=== PATIENT | male | born 1940 | race Caucasian/White ===

== ENCOUNTER 2018-03-07 03:21 | Inpatient (IN) | payer OTHER ==
[~2018-03-07] VITALS: Ht 152.4 cm; Wt 111.6 kg
[~2018-03-07 03:21] MED LIST: ALTACE10 M1 PO; NEXIUM; PROTONIX40 M1 PO; SYMBICORT160 MCG/4. INH; VENTOLIN HFA INH8 GM IH; ZOCOR20 MG PO
[2018-03-07] MEDS ORDERED: PROAIR HFA8.5 GM INH (03:28)
[2018-03-07] MEDS ORDERED: [UNRECOGNIZED DRUG - REMARK] PO (03:29)
[2018-03-07 03:30] VITALS: BP 147/120; BP 147/60
[2018-03-07 03:56] LABS: ABSOLUTE EOSINOPHILS 0.3 thou/uL (0.0-0.7); ABSOLUTE LYMPHOCYTES 1.3 thou/uL (0.8-5.3); ABSOLUTE MONOCYTES 0.6 thou/uL (0.0-1.2); ABSOLUTE NEUTROPHILS 3.6 thou/uL (1.6-8.1); BASOPHILS 0.4 %; EOSINOPHILS 5.1 %; HEMATOCRIT 41.1 % (42.0-52.0); HEMOGLOBIN 13.8 gm/dL (14.0-18.0); LYMPHOCYTES 21.8 %; MCHC 33.6 g/dL (28.0-37.0); MCV 89.3 fL (80.0-100.0); MONOCYTES 10.9 %; MPV 8.4 fl. (7.2-11.1); NUCLEATED RBCS 0 /100WBC; PLATELET COUNT* 168 thou/uL (150-400); POLYS 61.8 %; RDW-CV 13.6 % (10.5-14.5); WBC 5.8 thou/uL (4.0-11.0)
[2018-03-07 04:03] LABS: ANION GAP 9 mmol/L (7-16); BUN 14 mg/dL (7-18); CALCIUM 8.4 mg/dL (8.5-10.1); CHLORIDE 108 mmol/L (98-107); CO2 26 mmol/L (21-32); CREATININE 1.1 mg/dL (0.6-1.3); GLUCOSE 118 mg/dL (70-99); POTASSIUM 3.9 mmol/L (3.5-5.1); SODIUM 143 mmol/L (136-145)
[2018-03-07 04:14] LABS: ALBUMIN 3.6 g/dL (3.4-5.0); ALKALINE PHOSPHATASE 57 U/L (46-116); NT-PRO BRAIN NAT PEPTIDE 595 pg/mL (<300); SGOT 27 U/L (15-37); SGPT 34 U/L (30-65); TOTAL BILIRUBIN 0.4 mg/dL (<0.1-1.0); TOTAL PROTEIN 6.7 g/dL (6.4-8.2); TROPONIN-I LEVEL <0.06 ng/mL (<0.06)
--- NOTE | 2018-03-07 07:17 | NUR ---
I assumed care of the patient at 0700. He is alert and oriented x4 and is resting comfortably. RT is seeing the patient. He will be transfered to room 200 as soon as a nurse is able to take report. Will continue to monitor.
[2018-03-07 08:00] VITALS: BP 146/62
[2018-03-07 08:04] VITALS: BP 117/58
--- NOTE | 2018-03-07 10:14 | EKG ---
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: BRADY Quintana : 1940 Requested By: Kaiden Willson Order Number: [id number] MD: Jamel Maza Measurements Intervals [place] Rate: 56 P: 8 DC: 152 QRS: 24 QRSD: 101 T: 67 QT: 409 QTc: 395 Interpretive Statements Sinus rhythm Atrial premature complex Borderline low voltage, extremity leads Compared to ECG 05/27/2017 06:58:11 Atrial premature complex(es) now present Electronically Signed On 03-07-2018 10:14:07 CDT by Jamel Maza [email or web address] <ELECTRONICALLY SIGNED> By: Augustin Maza MD, [facility] 03/07/18 1014 0338 0338 Augustin Maza MD, [facility] /EPI
[2018-03-07 11:15] LABS: URINE BILIRUBIN NEGATIVE (Negative); URINE BLOOD NEGATIVE (Negative); URINE CLARITY CLEAR; URINE COLOR YELLOW; URINE GLUCOSE-RANDOM NEGATIVE (Negative); URINE KETONES NEGATIVE (Negative); URINE LEUKOCYTES NEGATIVE (Negative); URINE NITRITE NEGATIVE (Negative); URINE PROTEIN NEGATIVE (Negative); URINE UROBILINOGEN 0.2 E.U./dl (0.2-1.0)
--- NOTE | 2018-03-07 11:26 | NUR ---
PATIENT ADMITTED TO ROOM 200 AT 0835. AOX4. PLEASANT. ROOM AIR. DENIES PAIN. HERE FOR COPD EXACERBATION. STATES HE FEELS BETTER ALREADY AFTER BREATHING TX IN ER. IN ER PATIENT O2 DROPPED WALKING 60 FT, BUT AT REST AND IN ROOM PATIENT O2 SATS REMAIN >90. PATIENT HAS BEEN INDEPENDENT IN ROOM. SITTING UP IN CHAIR AT THIS TIME. PRESENT. PER DR GRACE, PATIENT POSSIBLE DISCHARGE TOMORROW.
[2018-03-07 12:00] VITALS: BP 137/69
--- NOTE | 2018-03-07 14:01 | NUR ---
REPORT GIVEN TO SEDA FOX AT 1400.
[2018-03-07 16:21] VITALS: BP 126/54
--- NOTE | 2018-03-07 17:34 | NUR ---
AFIB WITH HR OF 123. PT REPORTS NO PAIN. UP WITH ONE. REMAINED IN BED FOR THE GREATER PART OF THE DAY. POSSIBLY EATING INADEQUATE AMOUNT OF FOOD, REFUSES MOST MEAT ITEMS ON TRAY. FAMILY IN ROOM MOST OF DAY. PORT IN RIGHT CHEST SL. HOSPICE VISITED IN AM, P WILL BE OING ON HOSPICE WITH CARIS. PT LEFT WITH NECESSARY ITEMS IN REACH.
[2018-03-07 20:00] VITALS: BP 144/69
[2018-03-08] VITALS: BP 132/62
--- NOTE | 2018-03-08 03:16 | NUR ---
ASSUMED PT CRAE AT 1930, PT IS A&OX4, PT IS TRACING NSR ON THE MONITOR, ON RA SATTING MID TO HIGH 90'S. PT DENIES ANY PAIN OR NEEDS AT THIS TIME. BED IN LOW POSITION, CALL LIGHT IN REACH. PT SLEPT ON AND OFF THROUGHOUT THE NIGHT. HOURLY ROUNDING COMPLETED FOR PT NILAM.
[2018-03-08 04:00] VITALS: BP 141/67
[2018-03-08 08:00] VITALS: BP 133/70
[2018-03-08] MEDS ORDERED: DUONEB 2.5-0.5 M3 ML INH (11:12)
[2018-03-08] MEDS ORDERED: LEVAQUIN 500 M500 M3 PO (11:12)
[2018-03-08] MEDS ORDERED: PREDNISONE 20 M20 MG PO (11:12)
[2018-03-08 12:32] VITALS: BP 133/70
[2018-03-08 12:36] VITALS: BP 133/70
--- NOTE | 2018-03-08 18:01 | NUR ---
ORDER RECEIVED TO DISCHARGE PATIENT HOME TO SELF CARE. MED REC, MEDICATION EDUCATION, STROKE EDUCATION, ADN NEED FOR FOLLOW UP APPOINTMENTS COVERED AND STATD UNDERSTOOD BY PATIENT AND SPOUSE. IV AND TELEMETRY PACK REMOVED. HOURLY OUNDING COMPLETED FOR PATIENT SAFETY AND PATIENT WAS IN NO APPARENT SIGND OF DISTRESS AT TIME OF DISCHARGE. KEVIN CHOSE TO AMBULATE TO AWAITING CAR WITH SPOUSE AND NURSE PRESENT. PATIENT WAS GIVEN INSTRUCTIONS ON NEW MEDICATIONS AND THE USE OF HOME NEBULIZER. DC TIME OF 13:30.
== END 2018-03-08 13:00 | disposition home or self-care (01) | DRG 189 ==
LOC: M.ERS 03:21 → M.2W 04:45 → M.TBA-ER 04:45 → M.2W 08:16
PROVIDERS: Emergency Medicine Emergency Medical Services; ADMIT Internal Medicine
DX: J96.01 Acute respiratory failure with hypoxia (principal); J44.1 Chronic obstructive pulmonary disease with (acute) exacerbation; E78.00 Pure hypercholesterolemia, unspecified; M19.90 Unspecified osteoarthritis, unspecified site; E11.9 Type 2 diabetes mellitus without complications; K21.9 Gastro-esophageal reflux disease without esophagitis; J40 Bronchitis, not specified as acute or chronic; Z79.51 Long term (current) use of inhaled steroids; Z79.899 Other long term (current) drug therapy

== ENCOUNTER 2018-06-04 14:45 | Inpatient (IN) | payer OTHER ==
[~2018-06-04] VITALS: Ht 177.8 cm; Wt 104.5 kg
--- NOTE | ~2018-06-04 | PROC ---
[address] [address] PROCEDURE REPORT Name: JADEN ALONSO Room: [address] IN M.R.#: [id number] Admission: 06/04/18 Attend Phys: Nathaniel Leon MD Discharge: 06/08/18 Date of : 40 Report #: [id number] THIS REPORT FOR: //name// For GI report, please see the Provation report in Perceptive 7 content. By: 1052Medical Records Staff JOSS /GABY
[~2018-06-04 14:45] MED LIST changes: +DUONEB 2.5-0.5 M3 ML INH; +LEVAQUIN 500 M500 M3 PO; +PREDNISONE 20 M20 MG PO; +PROAIR HFA8.5 GM INH; +[UNRECOGNIZED DRUG - REMARK] PO
[2018-06-04 14:51] VITALS: BP 125/68
[2018-06-04] MEDS ORDERED: FLOMAX0.4 MG PO (14:54)
[2018-06-04] MEDS ORDERED: LOMOTIL TABLET1 EACH PO (14:54)
[2018-06-04 15:37] LABS: HEMATOCRIT 55.2 % (42.0-52.0); HEMOGLOBIN 18.7 gm/dL (14.0-18.0); MCH 30.5 pg (26.0-34.0); MCHC 33.8 g/dL (28.0-37.0); MCV 90.1 fL (80.0-100.0); MPV 8.1 fl. (7.2-11.1); NUCLEATED RBCS 0 /100WBC; PLATELET COUNT* 187 thou/uL (150-400); RBC 6.12 mil/uL (4.50-6.00); RDW-CV 13.7 % (10.5-14.5); WBC 8.9 thou/uL (4.0-11.0)
[2018-06-04 15:54] LABS: CALCIUM 10.3 mg/dL (8.5-10.1); CREATININE 2.2 mg/dL (0.6-1.3); POTASSIUM 4.7 mmol/L (3.5-5.1)
[2018-06-04 15:58] LABS: ABSOLUTE LYMPHOCYTES 0.8 thou/uL (0.8-5.3); ABSOLUTE MONOCYTES 0.4 thou/uL (0.0-1.2); ABSOLUTE NEUTROPHILS 7.7 thou/uL (1.6-8.1); ATYPICAL LYMPHS 2 %
[2018-06-04 15:59] LABS: ALBUMIN 4.6 g/dL (3.4-5.0); PLATELET ESTIMATE ADEQUATE; TOTAL PROTEIN 8.7 g/dL (6.4-8.2)
[2018-06-04 16:08] LABS: URINE BILIRUBIN 2+ (Negative); URINE BLOOD 1+ (Negative); URINE CLARITY CLEAR; URINE GLUCOSE-RANDOM NEGATIVE (Negative); URINE KETONES TRACE (Negative); URINE LEUKOCYTES-REFLEX NEGATIVE (Negative); URINE NITRITE-REFLEX NEGATIVE (Negative); URINE PROTEIN 2+ (Negative); URINE SPECIFIC GRAVITY >= 1.030 (1.005-1.030); URINE UROBILINOGEN 0.2 E.U./dl (0.2-1.0)
[2018-06-04 16:09] LABS: ICTOTEST (BILI CONFIRMATORY) Negative (Negative); URINE COLOR DARK YELLOW
[2018-06-04 16:14] LABS: HYALINE CASTS >10 Many /LPF (None Seen)
[2018-06-04 16:15] LABS: MUCUS 0-3 Light strn/LPF (None Seen); SQUAMOUS 0-3 Few /LPF (0-3)
[2018-06-04 16:16] LABS: BACTERIA-REFLEX 1-9 Few /HPF (None Seen); CRYSTALS None Seen /LPF (None Seen)
[2018-06-04 16:18] LABS: URINE RBC 0-2 Rare /HPF (0-2); URINE WBC-REFLEX 0-5 Rare /HPF (0-5)
[2018-06-04 18:47] VITALS: BP 114/62
[2018-06-04 20:35] VITALS: BP 111/63
[2018-06-04 20:41] LABS: URINE POTASSIUM-RANDOM 106.7 mmol/L
[2018-06-04] MEDS ORDERED: SYMBICORT160 MCG/4. INH (22:24)
[2018-06-05 04:17] LABS: HEMATOCRIT 46.5 % (42.0-52.0); MCHC 33.4 g/dL (28.0-37.0); MCV 89.8 fL (80.0-100.0); MPV 8.2 fl. (7.2-11.1); RBC 5.18 mil/uL (4.50-6.00); WBC 7.7 thou/uL (4.0-11.0)
[2018-06-05 04:18] LABS: HEMOGLOBIN 15.6 gm/dL (14.0-18.0)
[2018-06-05 04:50] LABS: CALCIUM 8.5 mg/dL (8.5-10.1); CREATININE 1.3 mg/dL (0.6-1.3); MAGNESIUM 1.5 mg/dL (1.8-2.4); POTASSIUM 4.1 mmol/L (3.5-5.1)
[2018-06-05 08:00] VITALS: BP 104/61
--- NOTE | 2018-06-05 13:19 | EKG ---
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: : 1940 Requested By: Cayden Hudson Order Number: [id number] MD: Tee May Measurements Intervals [place] Rate: 87 P: 77 [place]: 153 QRS: 89 QRSD: 91 T: 141 QT: 329 QTc: 396 Interpretive Statements Sinus rhythm Supraventricular complexes Low voltage, extremity leads Nonspecific T abnormalities, lateral leads Compared to ECG 03/07/2018 03:38:13 T-wave abnormality now present Electronically Signed On 06-05-2018 13:19:19 CDT by Tee May [email or web address] <ELECTRONICALLY SIGNED> By: Tee May MD, FAC 06/05/18 1319 1619 1619 Tee May MD, [facility] /EPI
[2018-06-05 16:50] VITALS: BP 121/61
[2018-06-05 20:30] VITALS: BP 104/51
[2018-06-06 04:23] LABS: HEMATOCRIT 43.9 % (42.0-52.0); HEMOGLOBIN 14.7 gm/dL (14.0-18.0); MCH 30.3 pg (26.0-34.0); MCHC 33.6 g/dL (28.0-37.0); MCV 90.1 fL (80.0-100.0); MPV 8.1 fl. (7.2-11.1); RBC 4.87 mil/uL (4.50-6.00); RDW-CV 14.1 % (10.5-14.5); WBC 5.9 thou/uL (4.0-11.0)
[2018-06-06 04:49] LABS: CALCIUM 7.6 mg/dL (8.5-10.1); MAGNESIUM 1.9 mg/dL (1.8-2.4)
[2018-06-06 08:00] VITALS: BP 112/62
[2018-06-07 00:12] VITALS: BP 113/66
[2018-06-07 04:10] LABS: HEMATOCRIT 41.2 % (42.0-52.0); HEMOGLOBIN 13.7 gm/dL (14.0-18.0); MCH 29.8 pg (26.0-34.0); MCHC 33.2 g/dL (28.0-37.0); MCV 89.7 fL (80.0-100.0); MPV 8.4 fl. (7.2-11.1); RBC 4.59 mil/uL (4.50-6.00); RDW-CV 13.7 % (10.5-14.5); WBC 6.1 thou/uL (4.0-11.0)
[2018-06-07 04:42] LABS: CALCIUM 7.5 mg/dL (8.5-10.1); CREATININE 0.9 mg/dL (0.6-1.3); MAGNESIUM 1.7 mg/dL (1.8-2.4); POTASSIUM 3.7 mmol/L (3.5-5.1)
[2018-06-07 08:00] VITALS: BP 104/62
[2018-06-07 17:07] VITALS: BP 111/57
[2018-06-08 07:43] VITALS: BP 111/57
[2018-06-08 08:00] VITALS: BP 122/64
[2018-06-08] MEDS ORDERED: FLAGYL500 MG PO (10:46)
[2018-06-08] MEDS ORDERED: CIPRO500 MG PO (10:46)
[2018-06-08] MEDS ORDERED: PROCTOFOAM15 GM RECTAL (10:46)
[2018-06-08 11:04] VITALS: BP 126/60
[2018-06-08 16:02] VITALS: BP 126/60
--- NOTE | 2018-06-15 11:07 | PATH ---
[address] [address] PATHOLOGY RPT PROCEDURE Name: JADEN GALO Room: [address] IN M.R.#: [id number] Admission: 06/04/18 Date of : 40 Discharge: 06/08/18 Report #: [id number] Path Case #: [id number] LCA Accession Number: [id number] . 01 Material submitted: . SIGMOID BIOPSY . 01 Clinical history: . Diverticulitis, dehydration, ARF Rule out mild sigmoid colitis . 02 Diagnosis: Sigmoid biopsy: - Focal active colitis, negative for granulomas, viral inclusions and dysplasia. See comment. LBQ/06/10/2018 . 02 Comment: The biopsies reveal benign colonic mucosa, several with focal superficial fresh hemorrhage and several with isolated foci of cryptitis and a crypt abscess, without significant crypt distortion or basal lymphoplasmacytosis seen to indicate chronicity. The histologic differential includes oral sodium phosphate prep, use of non-steroidal anti-inflammatory agents, acute self-limited or infectious colitis and less likely, Crohn's disease. (DEDE/db; 06/10/18) . 02 Electronically signed: . Yogesh Dolan MD, Pathologist NPI- [id number] . 01 Gross description: . The specimen is received in formalin, labeled "Jaden Galo, sigmoid BX" and consists of 3 fragments of riggins-light brown soft tissue measuring between 0.4 x 0.2 x 0.1 cm and 0.6 x 0.2 x 0.1 cm. They are entirely submitted in A1. (SDY; 06/09/2018) SYU/SYU . 02 Pathologist provided ICD-10: K52.9 . 02 CPT . 455411 Performed at: [address] [id number] MD Garrett Rodas MD Phone: [phone] Performed at: [address] [address] PATHOLOGY RPT PROCEDURE Name: IRINEO GALOALD Janelle Room: [address] IN [facility].#: [id number] Admission: 06/04/18 Date of : 40 Discharge: 06/08/18 Report #: [id number] Path Case #: [id number] [address] [id number] MD Yogesh Dolan MD Phone: [phone]
--- NOTE | 2018-07-30 13:22 | CON ---
[address] [address] CONSULTATION Name: JADEN ALONSO Room: [address] IN .R.#: [id number] Admission: 06/04/18 Attend Phys: Nathaniel Leon MD Discharge: 06/08/18 Date of : 40 Report #: [id number] THIS REPORT FOR: //name// CC: Chip Leon DATE OF SERVICE: 06/05/2018 REASON FOR CONSULTATION: Diarrhea. CHIEF COMPLAINT: Diarrhea. HISTORY OF PRESENT ILLNESS: This is a 77-year-old male with history of COPD, diabetes, and hypertension who is presenting to us for diarrhea of 2 days' duration. The patient reports the diarrhea started 2 days back, was rather abrupt in onset and he has had a bowel movement every couple of hours since then. The stools are loose and watery, light green in color. The patient denies any hematochezia. At the beginning of the onset of diarrhea, he had some abdominal cramps, which have subsequently subsided. He reports subjective sensation of fever and chills yesterday, but today he has been doing fine. He denies any nausea, vomiting or epigastric pain. PAST MEDICAL HISTORY: COPD, GERD, prostate cancer. PAST SURGICAL HISTORY: The patient had cholecystectomy 8 years back. FAMILY HISTORY: No significant family history of colon cancer or colitis. SOCIAL HISTORY: The patient has a 30 pack-year history of smoking, but he has quit. Denies significant alcohol use or recreational drug use. REVIEW OF SYSTEMS: The review of systems is positive for left lower quadrant abdominal pain, diarrhea, fever, and chills. Otherwise, a comprehensive 12-point review of systems was performed and is negative. LABORATORY DATA: The patient's hemoglobin is 15.6, hematocrit is 46.5, WBC count is 7.7, platelet count 155. Sodium 135, potassium 4.1, bicarbonate 20, BUN 20, creatinine 1.3, glucose 103, magnesium 1.0, calcium 8.5. The patient was noted to have lipase of 1176. IMAGING: CT scan of abdomen without contrast: There is low density liquid stool or fluid seen throughout the entire colon with air fluid levels in the colon. This could be suggestive of diarrhea. There is mild descending and sigmoid colon diverticulosis, with suggestion of mild pericolonic mesenteric fat stranding in the left abdomen alongside the descending colon. The mild diverticulosis or localized colitis is a consideration. Unenhanced liver, [place] [address] CONSULTATION Name: JADEN ALONSO Janelle Room: [address]#: [id number] Admission: 06/04/18 Attend Phys: Nathaniel Leon MD Discharge: 06/08/18 Date of : 40 Report #: [id number] spleen, pancreas, adrenal and kidney appear unremarkable apart from a small low density lesion in the superior pole of left kidney, most suggestive of cortical cyst, although incompletely characterized by a noncontrast. PHYSICAL EXAMINATION: GENERAL: The patient is awake, alert, oriented times 3. He is in no acute distress. HEENT: Normal. Mucous membranes moist. No congestion. NECK: Supple. CARDIAC: Rate and rhythm regular. S1, S2 present. PULMONARY: Lungs clear to auscultation bilaterally. ABDOMEN: Soft, no tenderness, no organomegaly. Bowel sounds robust. PERIPHERAL: Warm. Bilateral peripheral pulses present. NEUROLOGIC: No focal neurological deficit. SKIN: Warm and dry. Mood and affect normal. ASSESSMENT: This is a 77-year-old male with a history of prostate cancer and diabetes, who is presenting with acute onset diarrhea. CT scan shows evidence of mild fat stranding around the left colon. The acute diarrhea is either an infectious or an inflammatory process. Stool culture and C. diff have been ordered and we will follow up on that. PLAN: Switch antibiotics from Rocephin and IV Flagyl to p.o. Cipro and p.o. Flagyl. If the patient's stool culture or C. difficile are positive, no further intervention is necessary apart from switching the antibiotics to p.o. Flagyl or p.o. vancomycin. If, however, these studies are negative over the next 48 hours, can proceed with endoscopic intervention to rule out inflammatory bowel disease or ischemic colitis. If the patient continues to remain inpatient on Friday, we can prep him on Friday night and prepare for colonoscopy on Friday morning. <ELECTRONICALLY SIGNED> By: Issac Gracia MD 07/30/18 1322 1257 0240Issac Gracia MD /nt
== END 2018-06-08 17:00 | disposition home or self-care (01) | DRG 371 ==
LOC: M.ERS 14:45 → M.TBA-ER 17:10 → M.3W 17:10
PROVIDERS: Family Medicine; Nurse Practitioner Family; ADMIT Internal Medicine
PROC: 0DBN8ZX Excision of Sigmoid Colon, Via Natural or Artificial Opening Endoscopic, Diagnostic (ICD-10-PCS; principal; 2018-06-08)
DX: A04.9 Bacterial intestinal infection, unspecified (principal); N17.0 Acute kidney failure with tubular necrosis; K57.32 Diverticulitis of large intestine without perforation or abscess without bleeding; K21.9 Gastro-esophageal reflux disease without esophagitis; M19.90 Unspecified osteoarthritis, unspecified site; J44.9 Chronic obstructive pulmonary disease, unspecified; F17.200 Nicotine dependence, unspecified, uncomplicated; E11.9 Type 2 diabetes mellitus without complications; E86.9 Volume depletion, unspecified; K57.30 Diverticulosis of large intestine without perforation or abscess without bleeding; E78.00 Pure hypercholesterolemia, unspecified; Z85.828 Personal history of other malignant neoplasm of skin; Z85.46 Personal history of malignant neoplasm of prostate; Z90.49 Acquired absence of other specified parts of digestive tract

== ENCOUNTER 2019-06-25 12:42 | Inpatient (IN) | payer OTHER ==
[~2019-06-25] VITALS: Ht 175.3 cm; Wt 106.1 kg
[~2019-06-25 12:42] MED LIST changes: +CIPRO500 MG PO; +FLAGYL500 MG PO; +FLOMAX0.4 MG PO; +LOMOTIL TABLET1 EACH PO; +PROCTOFOAM15 GM RECTAL
[2019-06-25 12:46] VITALS: BP 136/76
[2019-06-25 13:14] LABS: ABSOLUTE EOSINOPHILS 0.2 thou/uL (0.0-0.7); ABSOLUTE LYMPHOCYTES 1.5 thou/uL (0.8-5.3); ABSOLUTE MONOCYTES 0.6 thou/uL (0.0-1.2); ABSOLUTE NEUTROPHILS 4.3 thou/uL (1.6-8.1); BASOPHILS 0.5 %; EOSINOPHILS 3.5 %; HEMATOCRIT 46.5 % (42.0-52.0); HEMOGLOBIN 15.5 gm/dL (14.0-18.0); LYMPHOCYTES 21.9 %; MCH 29.9 pg (26.0-34.0); MCHC 33.3 g/dL (28.0-37.0); MCV 89.5 fL (80.0-100.0); MONOCYTES 9.6 %; MPV 8.2 fl. (7.2-11.1); NUCLEATED RBCS 0 /100WBC; PLATELET COUNT* 212 thou/uL (150-400); POLYS 64.5 %; RBC 5.19 mil/uL (4.50-6.00); RDW-CV 13.9 % (10.5-14.5); WBC 6.6 thou/uL (4.0-11.0)
[2019-06-25 13:24] LABS: ANION GAP 9 mmol/L (7-16); BUN 15 mg/dL (7-18); CALCIUM 8.7 mg/dL (8.5-10.1); CHLORIDE 105 mmol/L (98-107); CO2 27 mmol/L (21-32); CREATININE 1.2 mg/dL (0.6-1.3); GLUCOSE 132 mg/dL (70-99); INR 1.1; POTASSIUM 4.1 mmol/L (3.5-5.1); PROTIME 10.9 Seconds (9.20-11.50); SODIUM 141 mmol/L (136-145)
[2019-06-25 13:35] LABS: ALBUMIN 3.6 g/dL (3.4-5.0); ALKALINE PHOSPHATASE 52 U/L (46-116); LIPASE 119 U/L (73-393); MAGNESIUM 1.8 mg/dL (1.8-2.4); NT-PRO BRAIN NAT PEPTIDE 2394 pg/mL (<300); SGOT 17 U/L (15-37); SGPT 31 U/L (30-65); TOTAL BILIRUBIN 0.3 mg/dL (<0.1-1.0); TOTAL PROTEIN 6.8 g/dL (6.4-8.2); TROPONIN-I LEVEL <0.06 ng/mL (<0.06)
[2019-06-25 15:17] VITALS: BP 120/67
[2019-06-25 15:35] VITALS: BP 161/64
--- NOTE | 2019-06-25 16:33 | NUR ---
PT ARRIVED TO ROOM 223 FROM ER AT APPROX 1530, REPORT RECEIVED FROM RAJAT STACK. PT A/O X4, DENIES SIGNIFICANT PAIN, C/O ONGOING ARTHRITIS PAIN, DENIES NEED FOR MEDS AT THIS TIME. PT UP AD BELEM IN ROOM, VSS, AFIB RATE CONTROLLED ON THE MONITOR. PT ON CARDIZEM GTT PER ORDERS, REFER TO EMAR. ADMISSION HX AND ASSESMENT DONE CHARTED. PTS PRESENT, NO OTHER NEEDS VERBALIZED AT THIS TIME. WILL CONTINUE WITH PLAN OF CARE.
--- NOTE | 2019-06-25 17:57 | 2DMMODE ---
[place] [address] 2 D/M-MODE ECHOCARDIOGRAM Name: JADEN ALONSO Room: [address] IN [facility]#: [id number] Admission: 06/25/19 Attend Phys: Riki Zhou MD Discharge: Date of : 40 Date of Service: 06/25/19 1757 Report #: [id number] THIS REPORT FOR: //name// APPROVED REPORT Study performed: 06/25/2019 16:22:18 EXAM: Comprehensive 2D, Doppler, and color-flow Echocardiogram Patient Location: In-Patient Room #: [facility] Status: routine BSA: 2.23 HR: 62 bpm BP: 120/67 mmHg Rhythm: Atrial Fibrillation Other Information Study Quality: Good Indications Atrial Fibrillation 2D Dimensions IVSd: 11.48 (7-11mm) LVOT Diam: 22.32 (18-24mm) LVDd: 51.42 mm PWd: 10.20 (7-11mm) Ascending Ao: 33.76 (22-36mm) LVDs: 25.77 (25-40mm) Aortic Root: 37.41 mm Volumes Left Atrial Volume (Systole) LA ESV Index: 29.1 mL/m2 Aortic Valve AoV Peak Kevin.: 1.11 m/s AO Peak Gr.: 4.95 mmHg LVOT Max P.94 mmHg AO Mean Gr.: 2.38 mmHg LVOT Mean P.29 mmHg LVOT Max V: 0.86 m/s AO V2 VTI: 20.69 cm LVOT Mean V: 0.51 m/s JF (VTI): 3.38 cm2 LVOT V1 VTI: 17.85 cm TDI Medial E' Kevin.: 0.15 m/s Lateral E' Kevin.: 0.17 m/[place] [address] 2 D/M-MODE ECHOCARDIOGRAM Name: JADEN ALONSO Room: [address] IN .#: [id number] Admission: 06/25/19 Attend Phys: Riki Zhou MD Discharge: Date of : 40 Date of Service: 06/25/19 1757 Report #: [id number] Pulmonary Valve PV Peak Kevin.: 0.77 m/s PV Peak Gr.: 2.39 mmHg Tricuspid Valve RAP Estimate: 5.00 mmHg TR Peak Gr.: 31.88 mmHg RVSP: 36.00 mmHg PA Pressure: 36.00 mmHg Left Ventricle The left ventricle is normal size. There is normal LV segmental wall motion. There is normal left ventricular wall thickness. Left ventricular systolic function is normal. The left ventricular ejection fraction is within the normal range. LVEF is 55-60%. This study is not technically sufficient to allow evaluation of the LV diastolic function due to atrial fibrillation. Right Ventricle The right ventricle is normal size. The right ventricular systolic function is normal. Atria The left atrium size is normal. The right atrium size is normal. Aortic Valve The aortic valve is normal in structure. No aortic regurgitation is present. There is no aortic valvular stenosis. Mitral Valve The mitral valve is normal in structure. Mild mitral regurgitation. No evidence of mitral valve stenosis. Tricuspid Valve The tricuspid valve is normal in structure. Trace tricuspid regurgitation. Mild pulmonary hypertension. Pulmonic Valve The pulmonary valve is normal in structure. Trace pulmonic regurgitation. Great Vessels The aortic root is normal in size. IVC is normal in size and collapses >50% with inspiration. Pericardium There is no [place] [address] 2 D/M-MODE ECHOCARDIOGRAM Name: ALONSOJADEN E Room: [address]#: [id number] Admission: 06/25/19 Attend Phys: Riki Zhou MD Discharge: Date of : 40 Date of Service: 06/25/19 1757 Report #: [id number] <Conclusion> Left ventricular systolic function is normal. The left ventricular ejection fraction is within the normal range. LVEF is 55-60%. This study is not technically sufficient to allow evaluation of the LV diastolic function due to atrial fibrillation. Mild mitral regurgitation. Trace tricuspid regurgitation. Mild pulmonary hypertension. <ELECTRONICALLY SIGNED> By: Augustin Maza MD, FACC 06/25/191756 56 56 Augustin Maza MD, FACC /INF
--- NOTE | 2019-06-25 18:56 | NUR ---
PT ARRIVED TO ROOM 228 AT APPROX 1710 FROM THE ER. PT A/O X4, C/O SOME PAIN IN LLQ AND CHEST PRESSURE, SHE STATES "IT IS BETTER SINCE I GOT HERE". PTS VSS, SR/BBB ON THE MONITOR.O2 SAT 98% ON RA. ADMISSION HX AND ASSESMENT DONE CHARTED. PT RESTING IN BED. FALL PRECAUTIONS IN PLACE. PT UPDATED ON PLAN OF CARE. WILL CONTINUE TO MONITOR.
[2019-06-25 20:00] VITALS: BP 121/56
--- NOTE | 2019-06-25 20:14 | EKG ---
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1940 Requested By: Kaiden Willson Order Number: [id number] MD: Jamel Maza Measurements Intervals [place] Rate: 115 P: [place]: QRS: 41 QRSD: 86 T: 69 QT: 342 QTc: 473 Interpretive Statements Atrial fibrillation Borderline low voltage, extremity leads Lead(s) V3 were not used for morphology analysis Baseline wander in lead(s) V2 Compared to ECG 06/04/2018 16:19:29 Sinus rhythm no longer present T-wave abnormality no longer present Electronically Signed On 06-25-2019 20:14:42 CDT by Jamel Maza [email or web address] <ELECTRONICALLY SIGNED> By: Augustin Maza MD, [facility] 06/25/192013 1252 1252 Augustin Maza MD, [facility] /EPI
[2019-06-26] VITALS: BP 108/51
[2019-06-26 04:00] VITALS: BP 103/61
[2019-06-26 04:57] LABS: ABSOLUTE EOSINOPHILS 0.2 thou/uL (0.0-0.7); ABSOLUTE LYMPHOCYTES 1.6 thou/uL (0.8-5.3); ABSOLUTE MONOCYTES 0.8 thou/uL (0.0-1.2); ABSOLUTE NEUTROPHILS 4.5 thou/uL (1.6-8.1); BASOPHILS 0.3 %; EOSINOPHILS 3.1 %; HEMATOCRIT 45.3 % (42.0-52.0); HEMOGLOBIN 14.9 gm/dL (14.0-18.0); LYMPHOCYTES 22.9 %; MCH 29.5 pg (26.0-34.0); MCHC 32.9 g/dL (28.0-37.0); MCV 89.8 fL (80.0-100.0); MONOCYTES 10.6 %; MPV 8.4 fl. (7.2-11.1); NUCLEATED RBCS 0 /100WBC; PLATELET COUNT* 203 thou/uL (150-400); POLYS 63.1 %; RBC 5.05 mil/uL (4.50-6.00); RDW-CV 13.8 % (10.5-14.5); WBC 7.1 thou/uL (4.0-11.0)
[2019-06-26 05:36] LABS: ANION GAP 9 mmol/L (7-16); BUN 14 mg/dL (7-18); CALCIUM 8.9 mg/dL (8.5-10.1); CHLORIDE 106 mmol/L (98-107); CHOLESTEROL 141 mg/dL (<200); CO2 25 mmol/L (21-32); GLUCOSE 100 mg/dL (70-99); HDL CHOLESTEROL 41 mg/dL (>40); LDL CHOLESTEROL 77 mg/dL (<100); MAGNESIUM 1.8 mg/dL (1.8-2.4); SODIUM 140 mmol/L (136-145); TC:HDL 3.4 Ratio (Not establshd); TRIGLYCERIDE 118 mg/dL (<150); VLDL 24 mg/dL (<40)
[2019-06-26 05:37] LABS: SERUM ASSESSMENT CLEAR
[2019-06-26 07:35] VITALS: BP 100/63
[2019-06-26 12:08] VITALS: BP 103/51
[2019-06-26 15:36] VITALS: BP 111/56
--- NOTE | 2019-06-26 16:58 | NUR ---
PATIENT RESTING UP IN CHAIR. PATIENT IS UP AD BELEM IN ROOM. PATIENT DENIES ANY PAIN. PATIENT HAD COMPLAINTS OF NAUSEA WITH WALKING THIS AM, BUT HAS DENIED THIS EVENING. PATIENT HAS GOOD APPETITE. HEART MONITOR STILL SHOWS AFIB WITH RATES RANGING FROM 45-92. PATIENT DENIES ANY NEEDS AT THIS TIME. CALL LIGHT WITHIN REACH.
[2019-06-26 19:50] VITALS: BP 116/55
[2019-06-27] VITALS: BP 102/56
[2019-06-27 04:00] VITALS: BP 96/55
--- NOTE | 2019-06-27 06:15 | NUR ---
VSS. SEE MAR. SEE CHARTING. HOURLY ROUNDING FOR SAFETY.
[2019-06-27 07:45] VITALS: BP 125/68
--- NOTE | 2019-06-27 09:30 | NUR ---
PT ORDERS RECEIVED AND ACKNOWLEDGED. PT IS UP AD BELEM IN ROOM AND HALLWAY W/O DME SUPPORT. PT DEMONSTRATES STABLE GAIT AND TRANSFERS. PT DOES NOT FEEL SKILLED PT SERVICES ARE INDICATED AT THIS TIME. PT INDICATES STRONG SOCIAL SUPPORT AT HOME FROM SPOUSE AND SON. WILL DISCHARGE PT SERVICES AT THIS TIME PER PT REQUEST.
[2019-06-27 12:00] VITALS: BP 96/47
--- NOTE | 2019-06-27 12:23 | EKG ---
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: : 1940 Requested By: Ritu Mendenhall Order Number: [id number] Reading MD: Jamel Maza Measurements Intervals [place] Rate: 61 P: [place]: QRS: 42 QRSD: 103 T: 77 QT: 415 QTc: 418 Interpretive Statements Atrial fibrillation Low voltage, extremity leads Compared to ECG 06/25/2019 12:52:44 No significant changes one ventricular escape beat Electronically Signed On 06-27-2019 12:23:13 CDT by Jamel Maza [email or web address] <ELECTRONICALLY SIGNED> By: Augustin Maza MD, [facility] 06/27/19 1223 11 11 Augustin Maza MD, [facility] /EPI
[2019-06-27 15:10] LABS: T7 2.1 (1.2-4.9)
[2019-06-27 16:00] VITALS: BP 113/58
--- NOTE | 2019-06-27 17:24 | NUR ---
PATIENT RESTING UP IN CHAIR. PATIENT IS UP AD BELEM IN ROOM. PATIENT DENIES ANY PAIN OR SHORTNESS OF BREATH. PATIENT HEART RHTHYM AFIB TO AFLUTTER THIS AFTERNOON. PATIENT DENIES ANY NEEDS AT THIS TIME. CALL LIGHT WITHIN REACH.
[2019-06-27 20:10] VITALS: BP 116/70
[2019-06-28] VITALS: BP 109/60
[2019-06-28 04:00] VITALS: BP 100/56
--- NOTE | 2019-06-28 07:09 | NUR ---
VSS. SEE MAR. SEE CHARTING. FALL PRECAUTION IN PLACE. HOURLY ROUNDING FOR SAFETY.
[2019-06-28 08:00] VITALS: BP 108/56
--- NOTE | 2019-06-28 10:40 | NUR ---
Pt is A&O. Active and independent. Pt has a cane that he can use for mobility. Pt also has a neb. No hx of HH or SNF. Goal is home at ok, no needs anticipated.
[2019-06-28 13:02] VITALS: BP 135/56
--- NOTE | 2019-06-28 14:47 | EKG ---
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
--- NOTE | 2019-06-28 14:52 | EKG ---
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
[2019-06-28] MEDS ORDERED: CARDIZEM CD120 MG PO (14:54)
[2019-06-28] MEDS ORDERED: ELIQUIS5 MG PO (14:54)
[2019-06-28] MEDS ORDERED: PROPAFENONE 15150 MG PO (14:54)
[2019-06-28 15:22] VITALS: BP 135/56
--- NOTE | 2019-06-28 16:02 | NUR ---
ASSUMED PT CARE REPORT RECEIVED FROM NURSE. PT IS AOX4, TRACING SR ON DAIRY NUTRITIONIST. PT ON RA. STRESS TEST DONE AT 1400. PT LEFT UNIT AFTER STRESS TEST PER DRIVER LICENSE EXAMINER NETWORK CABLE INSTALLER. PT TO RETURN OUTPT FOR THE REMAINING OF THE TEST PER CARDIOLOGY TEAM. DISCHARGE INSTRUCTION GIVEN. PT LEFT FLOOR BY WHEELCHAIR ACCOMPANIED BY CHILD AND .
--- NOTE | 2019-06-29 15:23 | CARDNUC ---
[place] [address] CARDIAC NUCLEAR IMAGING REPORT Name: JADEN ALONSO Room: [address]#: [id number] Admission: 06/25/19 Attend Phys: Riki Zhou MD Discharge: 06/28/19 Date of : 40 Date of Service: 06/29/19 1523 Report #: [id number] THIS REPORT FOR: //name// APPROVED REPORT Study performed: 06/27/2019 09:47:00 Indication: Atrial Fibrillation Patient Location: In-Patient Room #: [facility] Stress Tech: Savannah Alvarado Stress Nurse: Raisa Marsh RN Ht: 5 ft 9 in Wt: 234 lbs BSA: 2.21 m2 BMI: 34.55 Medical History Medical History: Atrial Fibrillation, COPD, Diabetes, Former Smoker, Former Tobacco chewer, HTN, Hyperlipidemia, Obesity, Bradycardia. Medications: Rythmol, Eliquis, Lipitor, Cardizem. Allergies: No known drug allergies Cardiac Risk Factors: Age, DM, FHX of CAD, HTN, Hyperlipidemia Previous Cardiac Procedures: Chemical A-Fib conversion. Pretest Chest Pain Characteristics: No chest pain Exercise History: Indeterminate Physical Disabilities: Paroxysmal A-Fib. Meds Held (24 hrs): None Resting Data Rest SPECT myocardial perfusion imaging was performed in supine position 30 minutes following the intravenous injection of 39.0 mCi of Tc-99m Sestamibi. Time of rest injection: 09:40 Date: 06/29/2019 The images were gated to evaluate regional wall motion and calculate left ventricular ejection fraction. Administration Route: Straight Stick Administration Site: Right Hand Pharmacologic Stress Pharmacologic stress test was performed by injecting Regadenoson 0.4 mg IV push over 10-15 seconds immediately followed by the intravenous injection of 33.6 mCi of Tc-99m Sestamibi. Time of stress injection: 13:55 Date: 06/28/2019 [place] [address] CARDIAC NUCLEAR IMAGING REPORT Name: JADEN ALONSO Room: [address]#: [id number] Admission: 06/25/19 Attend Phys: Riki Zhou MD Discharge: 06/28/19 Date of : 40 Date of Service: 06/29/19 1523 Report #: [id number] Administration Route: IV Administration Site: Left Hand Heart Rate at time of stress injection: 83 bpm. Gated Stress SPECT was performed 45 minutes after stress injection. The images were gated to evaluate regional wall motion and calculate left ventricular ejection fraction. Prone imaging was performed. Stress Test Details Stress Test: Pharmacologic stress testing performed using 0.4 mg of regadenoson per 5 mL given IV over 10 seconds. Reason for pharmacologic stress test: Paroxysmal A-Fib.. HR Max Heart Rate (APMHR): 142 bpm Resting HR: 54 bpm Target HR (85% APMHR): 120 bpm Max HR Achieved: 97 bpm % of APMHR: 68 Recovery HR: 77 bpm BP Resting BP: 106/58 mmHg Max BP: 112/56 mmHg Recovery BP: 131/57 mmHg ECG Resting ECG: Sinus Rhythm Stress ECG: Sinus Rhythm ST Change: None Arrhythmia: None Recovery ECG: Sinus Rhythm Recovery ST Change: None Recovery Arrhythmia: None Clinical Reason for Termination: Completed protocol Stress Symptoms: Dyspnea. Exercise duration: 00 min 00 sec Exercise capacity: 1.00 METs The patient tolerated Lexiscan infusion without significant cardiac symptoms. Nurse Comments 78 year old male presented with recent HX of A-fib. Patient tolerated sitting Lexiscan well. Recovery unremarkable with PO caffeine, effective. Patient was escorted via wheelchair by staff to Nuclear Medicine for images. Patient was stable [place] [address] CARDIAC NUCLEAR IMAGING REPORT Name: CELESTEJADEN E Room: [address]#: [id number] Admission: 06/25/19 Attend Phys: Riki Zhou MD Discharge: 06/28/19 Date of : 40 Date of Service: 06/29/19 1523 Report #: [id number] time. Stress ECG Conclusion The baseline 12-lead EKG shows sinus rhythm with no significant ST or T wave abnormalities. EKGs obtained during and post Lexiscan infusion show sinus rhythm with no significant ST or T wave changes when compared baseline. There were no significant stress-induced arrhythmias. Study Quality Study: Good Artifact: Moderate Diaphragmatic artifact Study Data At rest, the left ventricular ejection fraction was 56%.. Post stress, the left ventricular ejection was 68%.. TID = 0.97. Perfusion There is a large in size moderate intensity defect involving the inferior wall that is more pronounced on resting and stress images. The defect partially resolves on prone images. Wall motion in this region is normal suggesting diaphragmatic attenuation artifact. No other significant fixed or reversible defects were identified. Wall Motion Normal left ventricular wall motion. Nuclear Conclusion ECG Findings: negative for ischemia Clinical Findings: negative for ischemia Nuclear Findings: negative for ischemia Exercise Capacity: not assessed Left Ventricular Function: normal Risk Study: low Myocardial perfusion images show no defect to suggest infarct or ischemia. Left jugular systolic function is normal on gated studies. This is a low risk study. The region of photopenia noted in the inferior wall is likely due to diaphragmatic attenuation artifact. <Conclusion> The baseline 12-lead EKG shows sinus rhythm with no significant ST or T wave abnormalities. EKGs obtained during and post Lexiscan infusion show sinus rhythm with no significant [place] [address] CARDIAC NUCLEAR IMAGING REPORT Name: ALONSOJADEN E Room: [address]#: [id number] Admission: 06/25/19 Attend Phys: Riki Zhou MD Discharge: 06/28/19 Date of : 40 Date of Service: 06/29/19 1523 Report #: [id number] compared baseline. There were no significant stress-induced arrhythmias. <ELECTRONICALLY SIGNED> By: Seng Biggs MD, FACC 06/29/19 1523 1523 1523 Seng Biggs MD, FACC /INF
== END 2019-06-28 15:35 | disposition home or self-care (01) | DRG 309 ==
LOC: M.ERS 12:42 → M.2W 13:44 → M.TBA-ER 13:44 → M.2W 15:44
PROVIDERS: Emergency Medicine Emergency Medical Services; Internal Medicine; ADMIT Family Medicine
DX: I48.0 Paroxysmal atrial fibrillation (principal); D68.59 Other primary thrombophilia; K21.9 Gastro-esophageal reflux disease without esophagitis; E78.00 Pure hypercholesterolemia, unspecified; J43.9 Emphysema, unspecified; N18.3 Chronic kidney disease, stage 3 (moderate); E11.22 Type 2 diabetes mellitus with diabetic chronic kidney disease; E78.5 Hyperlipidemia, unspecified; Z85.828 Personal history of other malignant neoplasm of skin; Z85.46 Personal history of malignant neoplasm of prostate; Z79.899 Other long term (current) drug therapy; Z87.891 Personal history of nicotine dependence; Z82.49 Family history of ischemic heart disease and other diseases of the circulatory system; Z83.3 Family history of diabetes mellitus

== ENCOUNTER 2019-08-10 18:49 | Observation (INO) | payer OTHER ==
[~2019-08-10] VITALS: Ht 175.3 cm; Wt 105.6 kg
[~2019-08-10 18:49] MED LIST changes: +CARDIZEM CD120 MG PO; +ELIQUIS5 MG PO; +PROPAFENONE 15150 MG PO
[2019-08-10 18:51] VITALS: BP 164/74
[2019-08-10 19:19] LABS: ABSOLUTE EOSINOPHILS 0.2 thou/uL (0.0-0.7); ABSOLUTE LYMPHOCYTES 1.6 thou/uL (0.8-5.3); ABSOLUTE MONOCYTES 0.7 thou/uL (0.0-1.2); ABSOLUTE NEUTROPHILS 4.8 thou/uL (1.6-8.1); BASOPHILS 0.4 %; EOSINOPHILS 3.1 %; HEMATOCRIT 45.1 % (42.0-52.0); HEMOGLOBIN 15.3 gm/dL (14.0-18.0); LYMPHOCYTES 21.9 %; MCH 29.7 pg (26.0-34.0); MCV 87.3 fL (80.0-100.0); MONOCYTES 9.3 %; MPV 8.3 fl. (7.2-11.1); NUCLEATED RBCS 0 /100WBC; PLATELET COUNT* 224 thou/uL (150-400); POLYS 65.3 %; RBC 5.16 mil/uL (4.50-6.00); RDW-CV 14.1 % (10.5-14.5); WBC 7.3 thou/uL (4.0-11.0)
[2019-08-10 19:24] LABS: ANION GAP 8 mmol/L (7-16); APTT 30.3 Seconds (25.0-31.3); BUN 15 mg/dL (7-18); CALCIUM 8.9 mg/dL (8.5-10.1); CHLORIDE 106 mmol/L (98-107); CO2 27 mmol/L (21-32); CREATININE 1.4 mg/dL (0.6-1.3); GLUCOSE 137 mg/dL (70-99); INR 1.1; POTASSIUM 4.3 mmol/L (3.5-5.1); PROTIME 11.1 Seconds (9.20-11.50); SODIUM 141 mmol/L (136-145)
[2019-08-10 19:38] LABS: ALBUMIN 3.7 g/dL (3.4-5.0); ALKALINE PHOSPHATASE 67 U/L (46-116); CK-MB MASS 1.9 ng/mL (<0.5-3.6); LIPASE 147 U/L (73-393); MAGNESIUM 1.7 mg/dL (1.8-2.4); NT-PRO BRAIN NAT PEPTIDE 1265 pg/mL (<300); SGOT 19 U/L (15-37); SGPT 27 U/L (30-65); TOTAL BILIRUBIN 0.2 mg/dL (<0.1-1.0); TOTAL PROTEIN 7.1 g/dL (6.4-8.2); TROPONIN-I LEVEL <0.06 ng/mL (<0.06)
[2019-08-10 20:27] VITALS: BP 132/88
[2019-08-10 20:30] VITALS: BP 118/78
[2019-08-10] MEDS ORDERED: LIPITOR10 MG PO (22:32)
[2019-08-10] MEDS ORDERED: FLECAINIDE ACET50 M1 PO (22:34)
[2019-08-10] MEDS ORDERED: INDOMETHACIN 5050 M1 PO (22:37)
[2019-08-10] MEDS ORDERED: FLEXERIL PO (22:38)
[2019-08-10] MEDS ORDERED: FLOMAX0.4 MG PO (22:39)
[2019-08-10] MEDS ORDERED: TRAMADOL 50 MG50 MG PO (22:39)
[2019-08-11 00:18] VITALS: BP 105/70
[2019-08-11 04:29] VITALS: BP 105/58
--- NOTE | 2019-08-11 04:32 | NUR ---
PT ADMITTED TO FLOOR AT 2009 WITH DAUGHTER AT BEDSIDE. VSS, MAINTAINING O2 SATS > THAN 92% ON RA. ASSESSMENT COMPLETED AT BEDSIDE. NO C/O PAIN OR DISCOMFORT NOTED BY PT. NPO FOR CARDIO CONSULT, PT VERBALIZED UNDERSTANDING, CURRENTLY SLEEPING WITH CALL LIGHT WITHIN REACH.
[2019-08-11 09:18] VITALS: BP 117/7
[2019-08-11 11:01] VITALS: BP 117/7
[2019-08-11 11:17] VITALS: BP 96/54
--- NOTE | 2019-08-11 12:58 | NUR ---
ASSUMED CARE OF PATIENT AT APPROX 0730. ALERT AND OREINTED X4. ASSESSMENT COMPLETED AND CHARTED. VSS ON ROOM AIR. NO COMPLAINTS OF PAIN OR SOA. SR ON MONITOR. PATIENT UP AD BELEM. NO NEEDS VOICED TO THIS NURSE. PATIENT DISCHARGED AT 1200 WITH ALL PERSONAL BELONGINGS, PRESCRIPTION AND DISCHARGE INFORMATION.
--- NOTE | 2019-08-11 14:06 | EKG ---
[place] [address] ELECTROCARDIOGRAM REPORT Name: IRINEO ALONSONAGA Luis Room: [address]#: [id number] Admission: 08/10/19 Attend Phys: Tracy Milner MD Discharge: 08/11/19 Date of : 40 Report #: [id number] THIS REPORT FOR: //name// [facility] ED Test Date: 2019-08-10 Test Time: 18:50:41 Pat Name: JADEN ALONSO Department: Room: [facility] Gender: M Leave Coordinator: [place] : 1940 Requested By: Judd Reyes Order Number: [id number] MD: David Tijerina Measurements Intervals [place] Rate: 117 P: NV: QRS: -15 QRSD: 106 T: 94 QT: 341 QTc: 476 Interpretive Statements Atrial flutter with a tachycardic response Low voltage, extremity and precordial leads Repol abnrm suggests ischemia, diffuse leads Baseline wander in lead(s) V6 Compared to ECG 06/28/2019 11:21:23 Low QRS voltage now present Early repolarization now present Possible ischemia now present Atrial flutter is noted Intraventricular conduction delay no longer present Electronically Signed On 08-11-2019 14:05:58 CDT by David Tijerina [email or web address] <ELECTRONICALLY SIGNED> By: David Tijerina MD, [facility] 08/11/19 1405 49 49 David Tijerina MD, [facility] /EPI
== END 2019-08-11 12:00 | disposition home or self-care (01) ==
LOC: M.ERS 18:49 → M.2W 19:59 → M.TBA-ER 19:59 → M.2W 20:26
PROVIDERS: Family Medicine; ADMIT Internal Medicine
DX: I48.0 Paroxysmal atrial fibrillation (principal); J43.9 Emphysema, unspecified; E78.00 Pure hypercholesterolemia, unspecified; N17.9 Acute kidney failure, unspecified; E11.22 Type 2 diabetes mellitus with diabetic chronic kidney disease; N18.3 Chronic kidney disease, stage 3 (moderate); K21.9 Gastro-esophageal reflux disease without esophagitis; Z87.891 Personal history of nicotine dependence; Z79.02 Long term (current) use of antithrombotics/antiplatelets; Z79.899 Other long term (current) drug therapy

== ENCOUNTER → 2019-09-06 | Outpatient (CLI) | payer OTHER ==
[~2019-09-06] MED LIST changes: +FLECAINIDE ACET50 M1 PO; +FLEXERIL PO; +INDOMETHACIN 5050 M1 PO; +LIPITOR10 MG PO; +TRAMADOL 50 MG50 MG PO
[2019-09-06 07:33] LABS: HEMATOCRIT 44.4 % (42.0-52.0); MCH 29.7 pg (26.0-34.0); MCHC 33.8 g/dL (28.0-37.0); MCV 87.7 fL (80.0-100.0); MPV 7.7 fl. (7.2-11.1); RBC 5.06 mil/uL (4.50-6.00); RDW-CV 13.9 % (10.5-14.5); WBC 6.6 thou/uL (4.0-11.0)
[2019-09-06 07:46] LABS: ALBUMIN 3.7 g/dL (3.4-5.0); CALCIUM 8.7 mg/dL (8.5-10.1); CREATININE 1.1 mg/dL (0.6-1.3); POTASSIUM 4.2 mmol/L (3.5-5.1); TOTAL BILIRUBIN 0.3 mg/dL (<0.1-1.0); TOTAL PROTEIN 7.1 g/dL (6.4-8.2)
== END ==
LOC: M.LAB 07:16 → M.CT 08:30
PROVIDERS: Internal Medicine Cardiovascular Disease
DX: I48.91 Unspecified atrial fibrillation (principal); I25.10 Atherosclerotic heart disease of native coronary artery without angina pectoris; J84.10 Pulmonary fibrosis, unspecified; M25.78 Osteophyte, vertebrae

== ENCOUNTER → 2019-09-07 | Outpatient (CLI) | payer OTHER ==
[2019-09-07] VITALS (7 sets, daily range): BP systolic 116–133; BP diastolic 50–77
--- NOTE | 2019-09-07 14:12 | TEE ---
[place] [address] TRANSESOPHAGEAL ECHOCARDIOGRAM Name: JADEN ALONSO Room: [facility]#: [id number] Admission: 09/07/19 Attend Phys: Augustin Maza, Discharge: Date of : 40 Date of Service: 09/07/19 1412 Report #: [id number] THIS REPORT FOR: //name// APPROVED REPORT Study performed: 09/07/2019 11:54:54 EXAM: Transesophageal Echocardiogram Patient Location: Out-Patient Status: routine BSA: 2.25 HR: 50 bpm BP: 121/57 mmHg Rhythm: NSR Other Information Study Quality: Good Indications PRE-ABLATION Echo Enhancing Agent Indication: Rule out Shunt Agent(s) / Amount(s) Used: Agitated Saline 20 cc Comments: 2 BUBBLE STUDIES Procedure After obtaining informed consent, patient underwent transesophageal echo in the L[facility] Att[facility] [employer]. Type of Sedation : Conscious Sedation Sedation was administered by Ally Walton RN. Sedation start time: 1208 Case end Time: 1228 Sedation was achieved intravenously with: Versed (5) Fentanyl (100) Transesophageal probe was inserted and advanced into esophagus without difficulty by Seng Biggs MD, FACC. Echo enhancement indication: R/O Septal defect. Echo enhancement agent administered: Agitated Saline The MIGEL was performed without complications. Throughout the procedure, the blood pressure, pulse oximetry, cardiac rhythm, and rate were monitored. The patient tolerated the procedure without adverse effects. Recovery from conscious sedation was uneventful and vital signs were stable. [place] [id number] TRANSESOPHAGEAL ECHOCARDIOGRAM Name: ALONSOJADEN RHONDA Room: [facility] NIKKO [place]#: [id number] Admission: 09/07/19 Attend Phys: Augustin Maza, Discharge: Date of : 40 Date of Service: 09/07/19 1412 Report #: [id number] Left Ventricle The left ventricle is normal size. There is normal LV segmental wall motion. There is normal left ventricular wall thickness. Left ventricular systolic function is normal. LVEF is 60-65%. Right Ventricle The right ventricle is normal size. The right ventricular systolic function is normal. Atria The left atrium size is normal. No thrombus is visualized in the left atrium or appendage. PFO is noted. The right atrium size is normal. Aortic Valve The aortic valve is normal in structure. No aortic regurgitation is present. There is no aortic valvular stenosis. Mitral Valve The mitral valve is normal in structure. Mild to moderate mitral regurgitation. No evidence of mitral valve stenosis. Tricuspid Valve The tricuspid valve is normal in structure. Trace tricuspid regurgitation. Pulmonic Valve The pulmonary valve is normal in structure. There is no pulmonic valvular regurgitation. Great Vessels The aortic root is normal in size. Pericardium There is no pericardial effusion. <Conclusion> The left ventricle is normal size. There is normal left ventricular wall thickness. Left ventricular systolic function is normal. LVEF is 60-65%. The left atrium size is normal. No thrombus is visualized in the left atrium or appendage[place] [address] TRANSESOPHAGEAL ECHOCARDIOGRAM Name: JADEN ALONSO Room: [facility]#: [id number] Admission: 09/07/19 Attend Phys: Augustin Maza, Discharge: Date of : 40 Date of Service: 09/07/191411 Report #: [id number] Mild to moderate mitral regurgitation. Trace tricuspid regurgitation. <ELECTRONICALLY SIGNED> By: Seng Biggs MD, FACC 09/07/191411 11 11 Seng Biggs MD, FACC /INF
== END | disposition home or self-care (01) ==
LOC: M.CL 10:05
DX: I48.91 Unspecified atrial fibrillation (principal); I08.1 Rheumatic disorders of both mitral and tricuspid valves; J44.9 Chronic obstructive pulmonary disease, unspecified; Z87.19 Personal history of other diseases of the digestive system; Z79.899 Other long term (current) drug therapy; Z79.01 Long term (current) use of anticoagulants; Z98.890 Other specified postprocedural states

== ENCOUNTER → 2019-09-21 | Outpatient (CLI) | payer OTHER ==
--- NOTE | 2019-09-22 17:17 | SLEEP ---
[address] [address] SLEEP STUDY REPORT Name: JADEN ALONSO Room: [facility]#: [id number] Admission: 09/21/19 Attend Phys: Ritu Mendenhall Discharge: Date of : 40 Report #: [id number] THIS REPORT FOR: //name// CC: Chip Mendenhall This study has been reviewed in its entirety by a board certified sleep specialist DATE OF SERVICE: 09/21/2019 SLEEP STUDY ATTENDING PHYSICIAN: Dr. Ritu Mendenhall. The patient is a 78-year-old who weighs 235 pounds with a BMI of 33.7. The patient's Star score was 6. The patient underwent diagnostic sleep study, performed at [facility]. During the night study, the patient spent 491 minutes in bed and slept for 245 minutes with a sleep efficiency of 50%. Sleep latency was 22 minutes with a REM latency of 93.5 minutes. Sleep architecture showed normal stage 1 and stage 2 sleep, normal slow wave and normal REM sleep. During the night study, the patient had only 1 obstructive apnea. There were no mixed or central apneas. There were 38 hypopneas. The patient's apnea-hypopnea index was 9.5 per hour with a REM index of 32.5 per hour and a supine index of 13 per hour. EKG monitoring revealed an average heart rate of 56 beats per minute. No sustained arrhythmias observed. PLMS were not seen. Nocturnal oximetry study revealed an average oxygen saturation of 94% with the lowest of 81%. Fourteen minutes were spent in oxygen saturation of less than 89%. Due to low AHI, the patient did not meet the split night criteria for CPAP initiation. IMPRESSION: 1. 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 Total AHI of 9.5 per hour with a REM AHI of 32.5 per hour. 2. Nocturnal hypoxia secondary to obstructive sleep apnea. 3. No clinically [place] [address] SLEEP STUDY REPORT Name: JADEN ALONSO Room: [facility]#: [id number] Admission: 09/21/19 Attend Phys: Ritu Mendenhall Discharge: Date of : 40 Report #: [id number] 4. Reduced sleep efficiency resulting from sleep maintenance insomnia. RECOMMENDATIONS: 1. The patient did not meet the split night criteria for CPAP initiation due to low AHI. 2. If the patient is clinically symptomatic or has comorbid conditions, then the patient's sleep apnea can be treated with either CPAP versus oral appliance. 3. Weight loss is advised. 4. Avoid [employer] depressants. 5. Cautioned regarding driving until symptoms of sleep apnea resolve with the above recommendations. <ELECTRONICALLY SIGNED> By: Aneudy Richardson MD 09/22/19 1717 1035 1054Ashakira Richardson MD /francisca
== END ==
LOC: M.SLEEPLAB 08-18 11:30
DX: G47.33 Obstructive sleep apnea (adult) (pediatric) (principal); G47.34 Idiopathic sleep related nonobstructive alveolar hypoventilation

== ENCOUNTER 2019-12-10 08:49 | Emergency (ER) | payer OTHER ==
[~2019-12-10] VITALS: Ht 175.3 cm; Wt 104.3 kg
--- NOTE | ~2019-12-10 | EKG ---
[place] [address] ELECTROCARDIOGRAM REPORT Name: JADEN ALONSO Room: [facility]#: [id number] Admission: 12/10/19 Attend Phys: Discharge: 12/10/19 Date of : 40 Date of Service: 12/10/19 0859 Report #: [id number] THIS REPORT FOR: cc: Chip Bonilla Bradley L. DO Epiphany, Epiphany MD ~ THIS REPORT FOR: //name// [facility] ED Test Date: 2019-12-10 Test Time: 08:59:07 Pat Name: JADEN ALONSO Department: Room: Gender: M Paper Deliverer: GABY BELTRANB: 1940 Requested By: Kaiden Willson Order Number: [id number] MD: Measurements Intervals [place] Rate: 63 P: 55 MO: 172 QRS: 44 QRSD: 107 T: 94 QT: 394 QTc: 404 Interpretive Statements Sinus rhythm RSR' in V1 or V2, probably normal variant Nonspecific T abnrm, anterolateral leads Baseline wander in lead(s) V2,V4 Compared to ECG 08/10/2019 18:50:41 RSR' in V1 or V2 now present Atrial flutter no longer present Early repolarization no longer present Possible ischemia no longer present [email or web address] By: Epiphany EpiphMD [email or web address] /EPI
[2019-12-10 09:42] LABS: ABSOLUTE EOSINOPHILS 0.1 thou/uL (0.0-0.7); ABSOLUTE MONOCYTES 0.4 thou/uL (0.0-1.2); ABSOLUTE NEUTROPHILS 3.2 thou/uL (1.6-8.1); BASOPHILS 0.4 %; EOSINOPHILS 3.1 %; HEMATOCRIT 41.5 % (42.0-52.0); HEMOGLOBIN 14.2 gm/dL (14.0-18.0); LYMPHOCYTES 21.4 %; MCH 29.5 pg (26.0-34.0); MCHC 34.1 g/dL (28.0-37.0); MCV 86.4 fL (80.0-100.0); MONOCYTES 8.9 %; NUCLEATED RBCS 0 /100WBC; PLATELET COUNT* 205 thou/uL (150-400); POLYS 66.2 %; RDW-CV 14.1 % (10.5-14.5); WBC 4.8 thou/uL (4.0-11.0)
[2019-12-10 09:47] LABS: URINE BILIRUBIN NEGATIVE (Negative); URINE BLOOD NEGATIVE (Negative); URINE CLARITY CLEAR; URINE COLOR YELLOW; URINE GLUCOSE-RANDOM NEGATIVE (Negative); URINE KETONES NEGATIVE (Negative); URINE LEUKOCYTES-REFLEX NEGATIVE (Negative); URINE NITRITE-REFLEX NEGATIVE (Negative); URINE PROTEIN NEGATIVE (Negative); URINE SPECIFIC GRAVITY <= 1.005 (1.005-1.030); URINE UROBILINOGEN 0.2 E.U./dl (0.2-1.0)
[2019-12-10 09:53] LABS: CALCIUM 8.1 mg/dL (8.5-10.1); POTASSIUM 3.8 mmol/L (3.5-5.1)
[2019-12-10 09:57] LABS: ALBUMIN 3.4 g/dL (3.4-5.0); TOTAL BILIRUBIN 0.4 mg/dL (<0.1-1.0); TOTAL PROTEIN 6.5 g/dL (6.4-8.2)
[2019-12-10] MEDS ORDERED: BACTRIM DS TAB1 EAC1 PO (12:28)
[2019-12-10] MEDS ORDERED: NORCO 5-325 TA1 EAC1 PO (12:28)
[2019-12-10 12:46] VITALS: BP 112/75
== END 2019-12-10 12:47 | disposition home or self-care (01) ==
LOC: M.ERS 08:49
PROVIDERS: Emergency Medicine Emergency Medical Services
DX: N45.1 Epididymitis (principal); K21.9 Gastro-esophageal reflux disease without esophagitis; M54.5 Low back pain; I48.91 Unspecified atrial fibrillation; E11.9 Type 2 diabetes mellitus without complications; E78.00 Pure hypercholesterolemia, unspecified; Z85.46 Personal history of malignant neoplasm of prostate; Z85.828 Personal history of other malignant neoplasm of skin